=== PATIENT | male | born 1980 | race Caucasian/White ===

== ENCOUNTER 2023-01-13 16:29 | Emergency (ER) | payer SELFPAY ==
[~2023-01-13] VITALS: Ht 175.3 cm; Wt 97.5 kg
[2023-01-13 16:40] VITALS: BP 145/85
[2023-01-13] MEDS ORDERED: TRAM50TA2 PO (17:35)
== END 2023-01-13 23:59 | disposition home or self-care (01) ==
LOC: ER 16:29
DX: S43.101A Unspecified dislocation of right acromioclavicular joint, initial encounter (principal); S00.81XA Abrasion of other part of head, initial encounter; Z86.718 Personal history of other venous thrombosis and embolism; V89.2XXA Person injured in unspecified motor-vehicle accident, traffic, initial encounter; Y93.I9 Activity, other involving external motion; Y92.820 Desert as the place of occurrence of the external cause; Y99.8 Other external cause status
CPT/HCPCS: 29105; 70450; 73030; 93005